=== PATIENT | male | born 1965 | race African-American/Black ===

== ENCOUNTER 2017-12-30 12:52 | Emergency (ER) | payer OTHER ==
[~2017-12-30] VITALS: Ht 182.9 cm; Wt 74.8 kg
--- NOTE | 2017-12-30 13:11 | Emergency Room Report ---
History of Present Illness General Chief Complaint: Upper Respiratory Illness Source: Patient Present Illness HPI 52 yo male patient presents to ER complaining of cough x1 month. Reports cold and flu-like symptoms a few weeks ago that have resolved but cough still present. Reports dry cough, no blood in sputum. Reports cough worse at night. [place]atum chest pain, SOB, abdominal pain, nausea, vomiting, diarrhea, STORM. Denies hx of asthma or cardiovascular disease. Denies hx of HIV or cancer. 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 Denies weight loss, denies night sweats. Reports hx of sick contacts. Reports took codeine and OTC medications for relief of symptoms. Allergies: Coded Allergies: No Known Allergies (Unverified , 12/30/17) Patient History Past Medical History: see triage record Reviewed Nursing Documentation: PMH: Agreed; PSxH: Agreed Nursing Documentation-PMH Past Medical History: No Stated History Review of Systems All Other Systems: negative except mentioned in HPI Physical Exam Vital Signs Date Time Temp Pulse Resp B/P (MAP) Pulse Ox O2 Delivery O2 Flow Rate FiO2 12/30/17 13:00 97.9 71 20 112/77 98 Room Air 97.9 Sp02 EP Interpretation: reviewed, normal General Appearance: well appearing, no apparent distress, alert, GCS 15, non- toxic Head: normocephalic, atraumatic Eyes: bilateral eye normal inspection, bilateral eye PERRL ENT: hearing grossly normal, normal pharynx, no angioedema, normal voice, TMs + canals normal, uvula midline, moist mucus membranes Neck: full range of motion Respiratory: lungs clear, normal breath sounds, no rhonchi, no respiratory distress, no accessory muscle use, no wheezing, speaking full sentences Cardiovascular #1: regular rate, rhythm, no edema Gastrointestinal: non tender, soft, no mass, non-distended, no guarding, no rebound Musculoskeletal: back normal, digits/nails normal, gait/station normal, normal range of motion, non-tender Neurologic: alert, oriented x3, responsive, motor strength/tone normal, sensory intact Psychiatric: mood/affect normal Skin: no rash Lymphatic: no adenopathy Medical Decision Making PA Attestation Dr. Crook is my supervising Physician whom patient management has been discussed with. Diagnostic Impression: Primary Impression: Upper respiratory infection ER Course Pt presents to ED c/o cough DDX considered but are not limited to influenza, viral URI, strep throat, rhinitis, sinusitis, otitis media. No calf swelling, no recent travel, no hemoptysis, low suspicion for PE per [facility] 's criteria. PE benign, does not require imaging or labs or medications in ER at this time. VITAL SIGNS are WNL, patient is afebrile ER COURSE: PE benign, lungs clear to auscultation, no wheezes, rhonci or rales, Patient speaking without difficulty. Informed patient cough last symptoms to persist. Likely viral etiology. Followup with primary care provider for further evaluation and treatment. DISCHARGE: -Rx given for Tylenol/Acetaminophen -Rx given for Promethazine w/ codiene syrup for cough sx. Cures report negative. At this time pt is stable for d/c to home. Patient is resting comfortably, in no acute distress, nontoxic appearing, talking without difficulty. Patient to take medications as instructed Will provide with patient care instructions and any necessary prescriptions. Care plan and follow-up instructions provided. Patient instructed to follow-up with primary care provider in 3 - 5 days. Patient questions asked and answered. Patient reports understanding and agreement to treatment plan. ER precautions given. Patient instructed to return to ER immediately for any new or worsening of symptoms including but not limited to increasing SOB, persistent fever. Last Vital Signs Date Time Temp Pulse Resp B/P (MAP) Pulse Ox O2 Delivery O2 Flow Rate FiO2 12/30/17 13:00 97.9 71 20 112/77 98 Room Air 97.9 Disposition: HOME, SELF-CARE Condition: Stable Scripts Acetaminophen* (TYLENOL EXTRA STRENGTH*) 500 Mg Tablet 500 MG ORAL Q8H PRN for Prn Headache/Temp > 101, #30 TAB 0 Refills Prov: Jose Luis Vasquez P.A. 12/30/17 Codeine/Promethazine Hcl* (PROMETHAZINE-CODEINE SYRUP*) 118 Ml Syrup 5 ML ORAL Q6H PRN for For Cough for 5 Days, #118 ML 0 Refills Prov: Jose Luis Vasquez P.A. 12/30/17 Patient Instructions: Upper Respiratory Infection, Adult Additional Instructions: Followup with primary care provider in 3 -5 days. Take medications as directed. Patient questions asked and answered. ER precautions given, patient instructed to return to ER immediately for any new or worsening of symptoms including but not limited to chest pain, SOB, intractable vomiting. Jose Luis Vasquez Dec 30, 2017 13:11
[2017-12-30] MEDS ORDERED: PROMETHAZINE-C118 M1 ORAL (13:21)
[2017-12-30] MEDS ORDERED: TYLENOL EXTRA500 MG ORAL (13:21)
[2017-12-30 13:27] VITALS: BP 115/73
== END 2017-12-30 13:30 | disposition home or self-care (01) ==
LOC: EMR 13:15
DX: J06.9 Acute upper respiratory infection, unspecified (principal)
CPT/HCPCS: 99284